=== PATIENT | female | born 1935 | race Caucasian/White ===

== ENCOUNTER → 2016-12-20 | Outpatient (CLI) | payer OTHER | LOC: BMCIMAGING 16:23 | PROVIDERS: ATTEND Internal Medicine | DX: J34.89 Other specified disorders of nose and nasal sinuses (principal); R51 Headache ==

== ENCOUNTER → 2016-12-30 | Outpatient (CLI) | payer OTHER ==
[~2016-12-30] MED LIST: IOPAMIDOL (ISOVUE-300) 100 ML BTL IV ONE
[2016-12-30 15:15] LABS: CREATININE 0.6 mg/dL (0.6-1.0); GLOMERULAR FILTRATION RATE > 60
== END ==
LOC: FIMAGING 14:19
PROVIDERS: ATTEND Internal Medicine
DX: G44.89 Other headache syndrome (principal); J34.89 Other specified disorders of nose and nasal sinuses; I67.2 Cerebral atherosclerosis
CPT/HCPCS: Q9967

== ENCOUNTER → 2018-08-27 | Outpatient (CLI) | payer OTHER | LOC: BMCIMAGING 15:03 | PROVIDERS: ATTEND Physician Assistant | DX: R19.8 Other specified symptoms and signs involving the digestive system and abdomen (principal); K59.00 Constipation, unspecified ==